=== PATIENT | male | born 1945 | race Caucasian/White ===

== ENCOUNTER 2017-06-15 10:56 | Inpatient (IN) | payer OTHER, MEDICARE ==
[~2017-06-15 10:56] MED LIST: ceFAZolin 2 GM/SWFI 2 GM/20 ML SYR IVP ONE
[2017-06-15] MEDS ORDERED: LR 1,000 ML IV ONE (11:24)
--- NOTE | 2017-06-15 11:38 | PDANEPAE ---
ANE History of Present Illness 71 yo male with L ankle DJD for arthroplasty. ANE Past Medical History - Cardiovascular History Hx Hypertension: No Hx Arrhythmias: No Hx Chest Pain: No Hx Coronary Artery / Peripheral Vascular Disease: No Hx CHF / Valvular Disease: No Hx Palpitations: No - Pulmonary History Hx COPD: No Hx Asthma/Reactive Airway Disease: No Hx Recent Upper Respiratory Infection: Yes Hx Oxygen in Use at Home: Yes O2 in Use at Home (L/minute): 15L/min 100% Hx Sleep Apnea: No Sleep Apnea Screening Result - Last Documented: Negative Pulmonary History Comment: NEEDED OXYGEN USE FOR 15 MINS ONLY FOR HIS MIGRAINE HEADACHE; LAST USE WAS A YEAR AGO - Neurologic History Hx Cerebrovascular Accident: No Hx Seizures: No Hx Dementia: No - Endocrine History Hx Diabetes: No - Renal History Hx Renal Disorders: Yes Renal History Comment: RECURENT PROSTATITIS WITH UTI - Liver History Hx Hepatic Disorders: No - Neurological & Psychiatric Hx Hx Neurological and Psychiatric Disorders: Yes Neurological / Psychiatric History Comment: cluster migraines - Cancer History Hx Cancer: No - Congenital Disorder History Hx Congenital Disorders: No - GI History Hx Gastrointestinal Disorders: No - Other Health History Other Health History: none - Chronic Pain History Chronic Pain: Yes (lower back) - Surgical History Prior Surgeries: LEFT KNEE PARTIAL MENISECTOMY 2010. RIGHT SHOULDER SURGERY 2008. BILATERAL ANKLE SURGERY 2007. APPENDECTOMY 40 YRS AGO. TONSILLECTOMY AND ADENOIDECTOMY A KID ANE Review of Systems Review of systems is: negative Review of Systems: - Exercise capacity METS (RN): 5 METS - Systems Constitutional: Reports: no symptoms Gastrointestinal: Reports: no symptoms ANE Patient History - Allergies Allergies/Adverse Reactions: atorvastatin calcium [From Lipitor] Allergy (Verified 06/09/17 12:06) Other-Enter Comments levofloxacin [From Levaquin] Allergy (Verified 05/01/16 23:49) Sulfa (Sulfonamide Antibiotics) Allergy (Verified 05/01/16 23:49) tamsulosin HCl [From Flomax] Allergy (Verified 05/01/16 23:49) - Home Medications Home medications: home medication list seen and reviewed Home Medications: Herbals/Supplements -Info Only 05/02/16 [Last Taken 06/14/17] Acetaminophen [Tylenol ES 500 mg (*)] 05/25/16 [Last Taken 06/13/17] Ibuprofen [Advil] 11/14/16 [Last Taken 1 Week Ago ~06/08/17] Melatonin [Melatonin 3 MG (*)] 06/09/17 [Last Taken 06/14/17 20:00] SUMAtriptan [Imitrex 50 MG (*)] 06/09/17 [Last Taken 2 Weeks Ago ~06/01/17] - NPO status NPO Status: no food or drink >8 hours - Anes Hx Anes Hx: no prior problems - Smoking Hx Smoking Status: Former smoker - Alcohol Use Alcohol Use: Rarely (1/week) - Family Anes Hx Family Anes Hx: neg - N/A Family Hx Anesthesia Complications: none ANE Labs/Vital Signs - Vital Signs Vital Signs: reviewed preoperatively; see RN documention for details Height: 167.64 cm Weight: 68.039 kg ANE Physical Exam - Airway Neck exam: FROM Mallampati Score: Class 2 Mouth exam: normal dental/mouth exam - Pulmonary Pulmonary: clear to auscultation - Cardiovascular Cardiovascular: regular rate and rhythym - ASA Status ASA Status: II ANE Anesthesia Plan Anesthesia Plan: general endotracheal anesthesia Regional Anesthesia: single shot NB, continuous NB, adductor canal FNB, popliteal SNB
[2017-06-15] MEDS ORDERED: BUPIVACAINE 0.5% 30 ML SDV ONE ×2 (11:46→12:00)
--- NOTE | 2017-06-15 12:21 | PDHPUP ---
History & Physical Update H&P update statement: This history and physical update is based on an assessment of the patient which was completed after admission or registration (within 24 hours), but prior to the surgery/procedure.
[2017-06-15] MEDS ORDERED: PROPOFOL/EMULSION 500 MG/50 ML BOTTLE IV ONE (12:54)
[2017-06-15] MEDS ORDERED: ROPIVACAINE 0.2% 1,100 MG in PUMP SET 1 EA NB SCH (13:00)
[2017-06-15] MEDS ORDERED: DEXAMETHASONE 4 MG/ML VIAL ONE ×2 (13:03)
[2017-06-15] MEDS: fentaNYL 100 MCG/2 ML INJ ONE ×2 (14:15→18:21)
[2017-06-15] MEDS ORDERED: LIDOCAINE 2% 5 ML SDV ONE (14:41)
[2017-06-15] MEDS ORDERED: fentaNYL 100 MCG/2 ML INJ ONE ×3 (14:41→16:35)
[2017-06-15] MEDS ORDERED: ALBUTEROL 3 ML DEYVIAL IH PRN (15:09)
[2017-06-15] MEDS ORDERED: NALOXONE HCL 0.4 MG/ML INJ IVP PRN (15:09)
[2017-06-15] MEDS ORDERED: ONDANSETRON 4 MG/2 ML VIAL IVP PRN (15:09)
[2017-06-15] MEDS ORDERED: PROMETHAZINE HCL 25 MG/ML INJ IVP PRN (15:09)
[2017-06-15] MEDS ORDERED: OXYCODONE/APAP 5/325 TAB PO PRN (15:09)
--- NOTE | 2017-06-15 15:41 | POSTOPPROG ---
Post Op Note Date of Operation: 06/15/17 Surgeon: Matias Ponce Shearing Machine Operator: Km Anesthesiologist: Mine Anesthesia: GET(General Endotracheal) Pre-op Diagnosis: L ankle djd Post-op Diagnosis: L ankle djd Indication: djd Procedure: L TAA and Brianda Findings: same Inf/Abcess present in the surg proc area at time of surgery?: No EBL: 50-100
[2017-06-15] MEDS ORDERED: HYDROmorphONE/DILAUDID 1 MG/ML INJ IVP PRN (15:42)
[2017-06-15] MEDS ORDERED: oxyCODONE IR 5 MG TAB PO PRN (15:42)
[2017-06-15] MEDS: fentaNYL 100 MCG/2 ML INJ IVP PRN ×4 (15:59→17:04)
[2017-06-15 17:54] VITALS: BP 143/77; PULSE 86; RESP 12; TEMP 98.3; O2SAT 94
--- NOTE | 2017-06-15 20:53 | POSTANESTH ---
Post Anesthetic Evaluation Cardiovascular Status: Normal, Stable Respiratory Status: Normal, Stable Level of Consciousness/Mental Status: Can Participate in Eval, Alert and Oriented Pain Control: Adequate, Prn Tx Ordered (Pt with some pain in posterior mid calf , probably from skin incision for gastroc recession. No pain in ankle.) Nausea/Vomiting Control: Adequate, Prn Tx Ordered Complications Possibly Related to Anesthesia: None Noted
--- NOTE | 2017-06-15 21:01 | GOP ---
[f rep st] OPERATIVE REPORT DATE OF OPERATION: 06/15/2017 SURGEON: Matias Ponce MD POLICY LOAN CALCULATOR: Ulises Barbour. ANESTHESIA: General. 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 PROCEDURE PERFORMED: FINDINGS: SPECIMENS: None. ESTIMATED BLOOD LOSS: 20 mL. INDICATIONS: This is a 71-year-old male with symptomatic ankle DJD, had failed prior decompression s urgery and nonoperative treatment. He would like to proceed with surgery. We discussed risks of imp lant loosening, need for a fusion, fracture, continued pain, nerve injury, or wound complications and he elected to proceed. Informed consent was obtained, all questions answered. He was marked preope ratively. DESCRIPTION OF PROCEDURE: He was taken to the operative suite, sterilely prepped and draped in the n ormal fashion. He was given 2 g of Ancef. A block had been administered per Anesthesia. A time-out was performed to verify site, side, location, and there was agreement with the team. I made an incision over the medial calf muscle, dissected to the fascia, protecting neurovascular bun dle, and released at the myotendinous junction with the gastrocnemius, performed a Brianda with dorsi flexion, and obtained extra dorsiflexion. I then made an incision over his anterior ankle, performed the exposure, protecting neurovascular structures going between the tibia and EHL. Widely exposed t he ankle. I reached the deltoid ligament bluntly given his deformity. I made a small stab incision in the tibia and placed the pins for the alignment guide, then I placed the alignment guide. I made the adjustments to this, checked resection level fluoroscopically, and r otation, pinned this, then checked the talar part, and pinned this as well. We double checked all an d tightened every screw. I then cut the talus. I then pinned and cut the tibia and removed all this bone, cleared the gutters, and thoroughly irrigated this. I then did the trials and selected an 11 mL poly, based on the laxity he had laterally, to correct this and not have to perform a lateral babatunde nstruction. I then prepared the tibial side and the talar side for final implants. I selected the f inal implants, impacted the talus, and then put the poly onto the tibia and locked this into place. I then impacted the tibia. He had good range of motion. It was nice and stable. I thoroughly irrig ated this, checked this fluoroscopically, and took final x-rays. I then closed him with #1 Vicryl, 1 -0 Vicryl, 2-0 Vicryl, 3-0 Quill, and Dermabond. I placed him in a sterile dressing and splint. He was taken to PACU in stable condition. PROCEDURE: 1. Left total ankle arthroplasty. 2. Left ankle Brianda procedure. IMPLANTS: Anny Talaris XT size 1 tibia, size 1 talus, 11 mm poly. COMPLICATIONS: None. DRAINS: None. CONDITION: Stable. /[id number]/MODL
--- NOTE | 2017-06-16 15:09 | ASDISCHSUM ---
Discharge Information Plan Status:Home with No Needs Medically Cleared to Leave: Discharge Date:06/15/2017 08:00 PM CM D/C Disposition:Home, Routine, Self-Care ADT D/C Disposition:Home, Routine, Self-Care Projected Discharge Date:06/15/2017 08:00 PM Transportation at D/C: Discharge Delay Reason: Follow-Up Date:06/15/2017 08:00 PM Discharge Slot: Final Diagnosis: Placement Information Patient Contact Information Contact Name:ERIKA Relationship:Sister Address: City: [facility] Phone: [facility]/Zip Code:[place] Email: Financial Information Financial Class:MC Primary Plan Desc:MEDICARE INPATIENT Primary Plan Number:[id number] Secondary Plan Desc:[employer]/MDR SUPPLEMENT Secondary Plan Number:[id number] Assessment Information Intervention Information
--- NOTE | 2017-06-17 18:39 | GDS ---
[f rep st] DISCHARGE SUMMARY PREOPERATIVE DIAGNOSIS: Left ankle degenerative joint disease. HOSPITAL COURSE: He was admitted after a left ankle replacement, Brianda procedure. He was able to meet criteria for discharge the same day, of controlling his pain, including physical therapy. PROCEDURES: Left total ankle arthroplasty and Brianda procedure. CONSULTING PHYSICIANS: None. DISPOSITION: He was sent home on a regular diet. He was sent home, nonweightbearing. The left lowe r extremity in a splint. He will elevate this. He was sent home with prescriptions for oxycodone fo r pain. Start his previous home medications. He will use mechanical DVT prophylaxis. He will call or come back to the hospital if he has any chest pain, shortness of breath, or otherwise concerned. If not, he will follow up in 1 week. /[id number]/MODL
== END 2017-06-15 20:00 | disposition home or self-care (01) | DRG 469 ==
LOC: FSGY 10:56 → F3N 15:42
PROVIDERS: ADMIT Orthopaedic Surgery; ATTEND Orthopaedic Surgery
PROC: 0SRG0JZ Replacement of Left Ankle Joint with Synthetic Substitute, Open Approach (ICD-10-PCS; principal; 2017-06-15 12:30)
DX: M19.072 Primary osteoarthritis, left ankle and foot (principal); G43.909 Migraine, unspecified, not intractable, without status migrainosus; Z87.891 Personal history of nicotine dependence
CPT/HCPCS: J1100; J2704; J2795; J3010

== ENCOUNTER 2017-08-24 08:12 | Inpatient (IN) | payer OTHER, MEDICARE ==
[2017-08-24] MEDS ORDERED: LIDOCAINE 1% 2 ML INJ ID PRN (08:24)
[2017-08-24] MEDS ORDERED: LR 1,000 ML IV ONE (08:24)
[2017-08-24] MEDS ORDERED: BUPIVACAINE 0.5% 30 ML SDV ONE (08:26)
[2017-08-24] MEDS ORDERED: BUPIVACAINE 0.25% 30 ML SDV ONE (09:05)
[2017-08-24] MEDS ORDERED: ceFAZolin 2 GM/SWFI 2 GM/20 ML SYR IVP ONE (09:30)
[2017-08-24] MEDS ORDERED: MIDAZOLAM 2 MG/2 ML VIAL IVP ONE (09:50)
[2017-08-24] MEDS ORDERED: MIDAZOLAM 2 MG/2 ML VIAL ONE (09:50)
--- NOTE | 2017-08-24 09:55 | PDANEPAE ---
ANE History of Present Illness here for R ankle ANE Past Medical History - Cardiovascular History Hx Hypertension: No Hx Arrhythmias: No Hx Chest Pain: No Hx Coronary Artery / Peripheral Vascular Disease: No Hx CHF / Valvular Disease: No Hx Palpitations: No - Pulmonary History Hx COPD: No Hx Asthma/Reactive Airway Disease: No Hx Recent Upper Respiratory Infection: Yes Hx Oxygen in Use at Home: Yes Hx Sleep Apnea: No Sleep Apnea Screening Result - Last Documented: Negative Pulmonary History Comment: NEEDED OXYGEN USE FOR 15 MINS ONLY FOR HIS MIGRAINE HEADACHE; LAST USE WAS @ 2 yrs ago - Neurologic History Hx Cerebrovascular Accident: No Hx Seizures: No Hx Dementia: No - Endocrine History Hx Diabetes: No - Renal History Hx Renal Disorders: Yes Renal History Comment: RECURENT PROSTATITIS WITH UTI - Liver History Hx Hepatic Disorders: No - Neurological & Psychiatric Hx Hx Neurological and Psychiatric Disorders: Yes Neurological / Psychiatric History Comment: cluster migraines - Cancer History Hx Cancer: No - Congenital Disorder History Hx Congenital Disorders: No - GI History Hx Gastrointestinal Disorders: No - Other Health History Other Health History: molar # 19 missing - Chronic Pain History Chronic Pain: No - Surgical History Prior Surgeries: LEFT KNEE PARTIAL MENISECTOMY 2010. RIGHT SHOULDER SURGERY 2008. BILATERAL ANKLE SURGERY 2007. APPENDECTOMY 40 YRS AGO. TONSILLECTOMY AND ADENOIDECTOMY A KID ANE Review of Systems Review of Systems: - Exercise capacity METS (RN): 5 METS ANE Patient History - Allergies Allergies/Adverse Reactions: atorvastatin calcium [From Lipitor] Allergy (Verified 06/09/17 12:06) Other-Enter Comments levofloxacin [From Levaquin] Allergy (Verified 05/01/16 23:49) Sulfa (Sulfonamide Antibiotics) Allergy (Verified 05/01/16 23:49) tamsulosin HCl [From Flomax] Allergy (Verified 05/01/16 23:49) - Home Medications Home Medications: Herbals/Supplements -Info Only 1 misc MISC AD 05/02/16 [Last Taken 1 Week Ago ~ 08/17/17] Acetaminophen [Tylenol ES 500 mg (*)] 500 mg PO DAILY PRN 05/25/16 [Last Taken 08/24/17 08:00] Melatonin [Melatonin 3 MG (*)] 3 mg PO HS 06/09/17 [Last Taken 1 Day Ago ~] SUMAtriptan [Imitrex 50 MG (*)] 100 mg PO DAILY PRN 06/09/17 [Last Taken 08:10] Ibuprofen [Motrin (*)] 200 mg PO DAILY PRN 06/15/17 [Last Taken 2 Weeks Ago ~] Cholecalciferol Vit D3 [Vitamin D3 (*)] 5,000 units PO DAILY 08/05/17 [Last Taken 1 Day Ago ~08/23/17] [place]-3 Fatty Acids [Fish Oil 1000 mg (*)] 1,000 mg PO DAILY 08/05/17 [Last Taken 1 Week Ago ~08/17/17] - NPO status NPO Since - Liquids (Date): 08/24/17 NPO Since - Liquids (Time): 06:30 NPO Since - Solids (Date): 08/23/17 NPO Since - Solids (Time): 22:30 - Smoking Hx Smoking Status: Former smoker - Family Anes Hx Family Hx Anesthesia Complications: none ANE Labs/Vital Signs - Vital Signs Blood Pressure: 110/80 Heart Rate: 54 Respiratory Rate: 18 O2 Sat (%): 98 Height: 165.1 cm Weight: 67.585 kg
[2017-08-24] MEDS ORDERED: fentaNYL 100 MCG/2 ML INJ ONE ×3 (09:58→13:39)
[2017-08-24] MEDS ORDERED: PROPOFOL 200 MG/20 ML VIAL ONE ×2 (10:18→10:36)
[2017-08-24] MEDS ORDERED: ROPIVACAINE 0.2% 1,100 MG in PUMP SET 1 EA NB SCH (12:00)
[2017-08-24] MEDS ORDERED: PROMETHAZINE HCL 25 MG/ML INJ IVP PRN (13:15)
[2017-08-24] MEDS ORDERED: HYDROmorphONE/DILAUDID 1 MG/ML INJ IVP PRN ×2 (13:15→13:18)
[2017-08-24] MEDS ORDERED: DEXAMETHASONE 4 MG/ML VIAL IVP PRN (13:15)
[2017-08-24] MEDS ORDERED: ALBUTEROL 3 ML DEYVIAL IH PRN (13:15)
[2017-08-24] MEDS ORDERED: ONDANSETRON 4 MG/2 ML VIAL IVP PRN ×2 (13:15→13:18)
[2017-08-24] MEDS ORDERED: NALOXONE HCL 0.4 MG/ML INJ IVP PRN (13:15)
--- NOTE | 2017-08-24 13:16 | POSTANESTH ---
Post Anesthetic Evaluation Cardiovascular Status: Normal, Stable Respiratory Status: Normal, Stable Level of Consciousness/Mental Status: Can Participate in Eval Pain Control: Adequate, Prn Tx Ordered Nausea/Vomiting Control: Adequate, Prn Tx Ordered Complications Possibly Related to Anesthesia: None Noted
[2017-08-24] MEDS ORDERED: oxyCODONE IR 5 MG TAB PO PRN (13:18)
--- NOTE | 2017-08-24 13:18 | POSTOPPROG ---
Post Op Note Date of Operation: 08/24/17 Surgeon: Matias Ponce House Furnishings Supervisor: Km Anesthesiologist: Anesthesia: GET(General Endotracheal) Pre-op Diagnosis: R ankle djd Post-op Diagnosis: same Indication: above Procedure: R TAA, Brianda Inf/Abcess present in the surg proc area at time of surgery?: No EBL: 50-100
[2017-08-24] MEDS ORDERED: SUMAtriptan 50 MG TAB PO PRN (13:21)
[2017-08-24] MEDS: fentaNYL 100 MCG/2 ML INJ IVP PRN ×3 (13:41→14:04)
--- NOTE | 2017-08-24 14:22 | GOP ---
[f rep st] OPERATIVE REPORT DATE OF OPERATION: 08/24/2017 SURGEON: Matias Ponce MD LICENSING OFFICER: Ulsies Barbour SA ANESTHESIA: General with indwelling popliteal block. PREOPERATIVE DIAGNOSIS: Right ankle degenerative joint disease and Achilles contracture. POSTOPERATIVE DIAGNOSIS: Right ankle degenerative joint disease and Achilles contracture. PROCEDURE PERFORMED: 1. Right total ankle arthroplasty. 2. Right leg Brianda procedure, gastroc recession. FINDINGS: SPECIMENS: None. ESTIMATED BLOOD LOSS: 20 mL. INDICATIONS: This is a 72-year-old male who had bilateral ankle arthritis had previously done total ankle on his left side and did well, and he elected to have it done this side. We discussed risks of implant loosening, failure, need for revision, malalignment, infection, nerve injury, continued pain, swelling, stiffness, instability. He elected to proceed. Informed consent obtained. All questions answered. Marked preoperatively. DESCRIPTION OF PROCEDURE: He was taken to the operative suite. Blocks were administered prior to anesthesia, so was Ancef. He was sterilely prepped and draped in normal fashion. Time-out was performed verifying the patient, side, site, location. There was agreement with the team. Incision was begun by making an incision for Brianda procedure over the mid calf medially. I dissected through the fascia and protected the neurovascular structures. Isolated the gastroc tendon-myotendinous junction and cut this with George scissors with dorsiflexion on the foot, achieving more dorsiflexion. I then irrigated and closed this wound with 2-0 Vicryl, 3-0 Quill. I made the anterior exposure with an inch incision over the ankle, protecting neurovascular structures. Worked between the EHL, and tibialis anterior, and pulled these out of the way. Exposed the bone, again protecting deep neurovascular structures. Exposed the medial and lateral gutters. I released a good portion of the deltoid to correct this deformity, maintaining exposure of the ankle, which was severely arthritic. I then made a small hole just below the tibial tubercle with juan manuel in the skin, and then a drill and then a pin. Then placed the tibial guide. Adjusted this, got provisionally the medial and lateral translation, varus and valgus alignment and the rotation. Then used the talar cutting block to line up the height of this, and then locked this into place. Then adjusted the medial and lateral sides. Went back to the tibia and adjusted this medially and laterally, and used the rotation guide to adjust the rotation. I liked both the tibial and talar cutting positions. Placed the talar cutting block on this, corrected this deformity, pinned this into place, and cut the talus. I then removed this, left this bone in place, and then put the tibial guide and double checked this fluoroscopically. Drilled the pin holes, and then cut the tibia, and then the side holes. I then cleaned out the gutters and removed the bone. It was thoroughly irrigated, thus creating a nice open space. The trials were then utilized. I selected a 10 poly. I then was able to pin the trials in place, translating the talus over medially as well. I pinned the talus into place and then I positioned the tibia. I then pinned and prepared the tibia with the keel then osteotome and rasp. I then prepared the talus with the drill and the plug, and then the rasp connecting the holes. I selected the final components and placed the talus component on then malleted this into place. This sat well and checked this fluoroscopically. Then tested the 10 poly to the tibia. Malleted into place, taking sagittal x-rays as I went along. This was bone grafted as well, which I did with the autograft bone. This was stable, had good range of motion. Stable to varus and valgus stress and rotation. I then irrigated. Released the tourniquet. Obtained hemostasis. Closed with 0 Vicryl , 2-0 Vicryl, 3-0 Quill, and Dermabond. He was taken to PACU in stable condition. IMPLANTS: Anny Talaris XT #1 talus, #1 tibia and 10 mm poly. COMPLICATIONS: None. DRAINS: None. CONDITION: Stable. /[id number]/MODL MTDD
[2017-08-24 14:40] VITALS: O2SAT 94
[2017-08-24 16:08] VITALS: BP 111/70; PULSE 85; RESP 16; TEMP 97.6
[2017-08-24] MEDS ORDERED: ceFAZolin 2 GM/SWFI 2 GM/20 ML SYR IVP SCH (18:00)
[2017-08-24] MEDS ORDERED: ceFAZolin 2 GM/DEXTROSE 100 ML IV SCH (18:00)
[2017-08-24] MEDS ORDERED: MELATONIN 3 MG TAB PO SCH (21:00)
[2017-08-25] MEDS ORDERED: OMEGA-3 FATTY ACIDS 1,000 MG CAP PO SCH (09:00)
[2017-08-25] MEDS ORDERED: CHOLECALCIFEROL VIT D3 1,000 UNITS TAB PO SCH (09:00)
== END 2017-08-24 18:08 | disposition home or self-care (01) | DRG 469 ==
LOC: F3N 08:12
PROVIDERS: ADMIT Orthopaedic Surgery; ATTEND Orthopaedic Surgery
PROC: 0SRF0JZ Replacement of Right Ankle Joint with Synthetic Substitute, Open Approach (ICD-10-PCS; principal; 2017-08-24 09:45)
PROC: 0LSN0ZZ Reposition Right Lower Leg Tendon, Open Approach (ICD-10-PCS; principal; 2017-08-24 09:45)
DX: M19.071 Primary osteoarthritis, right ankle and foot (principal); M67.01 Short Achilles tendon (acquired), right ankle
CPT/HCPCS: 97161-GP; 97165-GO; G8978-GP-CI; G8979-GP-CI; G8980-GP-CI; G8987-GO-CI; G8988-GO-CI; G8989-GO-CI; J0690; J2250; J2704; J2795; J3010